=== PATIENT | female | born 1990 | race Caucasian/White ===

== ENCOUNTER 2022-09-07 16:14 | Outpatient (CLI) | payer BC, SELFPAY ==
[2022-09-07 16:55] VITALS: BP 130/68; PULSE 103
--- NOTE | 2022-09-07 17:02 | CRLHL7_ITS ---
For Patients: As a result of the Century Cures Act, medical imaging exams and procedure reports are released immediately into your electronic medical record. You may view this report before your referring provider. If you have questions, please contact your health care provider. INDICATION: Abdominal pain. Established gestational age is 30 weeks 6 days. COMPARISON: None available. TECHNIQUE: Real time cisneros scale imaging of the fetus was performed. FINDINGS: Sonographic imaging demonstrates a single living intrauterine gestation. Fetus demonstrates a regular cardiac rate of 142 beats per minute. Fetus has a vertex orientation. The placenta is anterior. The amniotic fluid volume appears normal. Single deepest vertical pocket measures 5.2 cm.. Biophysical profile: tone- 2/2. The gross body movements- 2/2. breathing activity - 2/2. Amniotic fluid-2/2. Total score- 8/8. IMPRESSION: Normal biophysical profile score of 8 out of 8. Dictated by Angelica Case MD @ 09/07/2022 6:41:50 PM (Electronically Signed)
--- NOTE | 2022-09-07 17:20 | CRLHL7_ITS ---
For Patients: As a result of the Century Cures Act, medical imaging exams and procedure reports are released immediately into your electronic medical record. You may view this report before your referring provider. If you have questions, please contact your health care provider. INDICATION: Right upper quadrant abdomen pain. TECHNIQUE: Ultrasound abdomen limited. Sonographic images of the right upper quadrant were obtained using cisneros-scale and color Doppler images. COMPARISON: None. FINDINGS: Liver: Normal in size and echotexture. No suspicious masses. No intrahepatic biliary dilatation. Gallbladder: No stones or sludge. Normal wall thickness. No pericholecystic fluid. Negative sonographic Orr`s sign. Common bile duct: 3 mm. Pancreas: Unremarkable. Right kidney: Normal in size. Normal echotexture and cortex. No suspicious masses, stones, or hydronephrosis. Vasculature: Proximal abdominal aorta and IVC are unremarkable. IMPRESSION: Unremarkable right upper quadrant ultrasound. Dictated by Gideon Smith MD @ 09/07/2022 6:35:01 PM (Electronically Signed)
--- NOTE | 2022-09-07 17:20 | W.PM.OBO ---
OB Outpatient HPI History of Present Illness Date Seen: 09/07/22 History of Present Illness: 31 year old G5 P 2-0-2-2 woman at 30 weeks, 6 days gestation by LMP consistent with 1st trimester ultrasound, JAUN 11/10/2022, presents with complaint of abdominal pain. She developed sharp, stabbing pain to the right of her umbilicus while driving home to [place] from [place], where she works. Thus far, she has received her care at [facility]. She has noticed some mild discomfort in the right upper quadrant intermittently, and has noticed a similar pain at this currently patient is well, but not as severe. She denies any nausea or vomiting. No vaginal bleeding. No contractions. Good movement. No history of gallbladder disease. This is otherwise complicated by/notable for: 1. Chronic hypertension. She is prescribed labetalol 200 mg b.i.d.. She does not always take it, and tends to reserve it for when her blood pressures are particularly high. Taking it regularly causes her headache. 2. History of 2 previous deliveries. She has a repeat delivery scheduled at 39 weeks. OB History: 2 deliveries at term. Two terminations of PFSH Surgical History (Updated 09/07/22 @ 17:23 by Loreto Bravo MD) History of 2 sections S/P laparoscopy Family History (Updated 09/07/22 @ 17:23 by Loreto Bravo MD) Other High blood pressure Social History (Updated 09/07/22 @ 17:24 by Loreto Bravo MD) Narrative: She lives in [place]. 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 She doesn't drink alcohol or use recreational drugs during . Smoking Status: Former smoker History History 6 Elective abortions Para 2 Spontaneous abortions Hx # Term Pregnancies Ectopic pregnancies Hx # Pregnancies Multiple births Number of Living Children 2 OB - H&P: Exam Physical Exam Vital signs: Pulse BP 103 H 130/68 09/07/22 16:55 09/07/22 16:55 Narrative: Physical exam: General: No acute distress Psych: Alert and oriented x3, full affect HEENT: Normocephalic, atraumatic Heart: Regular rate and rhythm, no murmur rub or gallop Lungs: Clear to auscultation bilaterally Abdomen: Soft, nontender, gravid. No right upper quadrant tenderness to palpation. Lower extremities: No edema or erythema Pelvic exam: Deferred tracing: Baseline 135, accelerations present, no decelerations, moderate variability. Labs Labs HELLP labs are normal/unremarkable Protein to creatinine ratio 0.20 Abdominal ultrasound is normal ultrasound: Sonographic imaging demonstrates a single living intrauterine gestation.? Fetus demonstrates a regular cardiac rate of 142 beats per minute.? Fetus has a vertex orientation. The placenta is anterior. The amniotic fluid volume appears normal. Single deepest vertical pocket measures 5.2 cm.. Biophysical profile: tone- 2/2. The gross body movements- 2/2. breathing activity - 2/2. Amniotic fluid-2/2. Total score- 8/8. IMPRESSION: Normal biophysical profile score of 8 out of 8. Assessment and Plan Assessment and plan (1) Abdominal pain in : Status: Acute Assessment and Plan: Reassuring testing. Normal appearance of right upper quadrant on ultrasound. HELLP labs normal. Ultrasound shows no placental disruption. Uncertain etiology; could include abdominal wall. Plan Discharge to home. 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
[2022-09-07 17:31] LABS: Hematocrit 32.5 % (33.0-51.0); Hemoglobin* 10.9 gm/dL (12.0-16.0); Mean Corpuscular HGB Conc 34 gm/dL (32-36); Mean Corpuscular Hemoglobin 29 pg (26-34); Mean Corpuscular Volume 86 fL (80-100); Platelet Count* 188 K/uL (140-440); Red Blood Count 3.77 m/uL (4.00-5.20); White Blood Count* 14.02 K/uL (4.50-11.00)
[2022-09-07 17:42] LABS: Slide Review Reflex No
[2022-09-07 17:51] LABS: Aspartate Amino Transferase* 23 U/L (12-35); Creatinine* 0.4 mg/dL (0.5-1.5); Estimated Glomerular Filt Rate 136 ml/min
[2022-09-07 17:52] LABS: Alanine Aminotransferase* 27 U/L (4-35); Blood Urea Nitrogen* 6 mg/dL (5-24)
[2022-09-07 17:54] LABS: Total Protein Urine 11 mg/dL
[2022-09-07 17:55] LABS: Creatinine Urine 50.3 mg/dL
[2022-09-07 18:13] VITALS: BP 128/79; PULSE 100
[2022-09-07 18:28] VITALS: BP 117/62; PULSE 90
--- NOTE | 2022-09-07 18:41 | PC.OBNST ---
NST Note NST Note Start: 09/07/22 16:26 Freq: ONCE Status: Active Protocol: Document 09/07/22 16:26 [facility] (Rec: 09/07/22 18:41 [facility] [id number]) NST Note 6 Para (# of births) 2 EDC 11/10/22 Gestational Age In Weeks & Days 30 Weeks & 6 Days High Risk Factors High Blood Pressure - Preexisting Patient Presented with Complaint(s) of Pain If Pain, describe location right quadrant pain Reactive Yes Appropriate for Gestational Age Yes MARK Romero Date 09/07/22 Reactive Yes Appropriate for Gestational Age Yes MARK Jain Date 09/07/22 OB NST charge Yes Complete NST Note via Write Note Yes The provider's electronic signature indicates the NST is reactive/appropriate for gestational age. *Note to provider: If an addendum is required, open the patient's chart and click on the note under the Nurse/Allied Health tab.
== END 2022-09-07 18:46 | disposition home or self-care (01) ==
LOC: OB 16:19 → OB OUT 16:20 → OB 17:53
PROVIDERS: Visit Provider Obstetrics & Gynecology
DX: O26.893 Other specified pregnancy related conditions, third trimester (principal); R10.9 Unspecified abdominal pain; Z3A.30 30 weeks gestation of pregnancy
CPT/HCPCS: 36415; 59025; 76705; 76819; 82565; 82570; 84156; 84450; 84460; 84520; 85027; 99213

== ENCOUNTER 2022-10-25 20:02 | Emergency (ER) | payer BC, SELFPAY ==
[2022-10-25 20:11] VITALS: BP 143/98; PULSE 113; RESP 24; TEMP 36.4; O2SAT 99
--- NOTE | 2022-10-25 20:58 | ED.GENADULT ---
HPI - General Adult General Date Seen: 10/25/22 Chief complaint: Post OB/Post- Complication Stated complaint: pain from c-sec. on wednesday Time Seen by Provider: 10/25/22 20:34 Source: patient Mode of arrival: ambulatory Limitations: no limitations History of Present Illness HPI narrative: Patient is a 32-year-old who had a on Wednesday, presents to the ER on Wednesday saying that she is having ongoing incisional pain and needs additional oxycodone. She says that she was seen in the [place] ER on Wednesday, her Ob actually saw her at that time. She did have preeclampsia, was delivered at 37 weeks as result. She does have hypertension in general, was on losartan prior to her and then switched to labetalol. Is that she was on labetalol post delivery, then switch to Procardia. She felt that her heart was going fast on Procardia and that she had increased swelling in her feet so she switched herself back to labetalol today. On Wednesday, she says she was evaluated and had lab work which was all normal. There is a note in her chart on [facility] from today showing a phone call from the , yesterday that her OB had said he would call a prescription in this morning on the for additional oxycodone. This appears to have been not filled pending insurance review. She comes in tonight, tearful, saying that she is not having good pain control at this time with ibuprofen and Tylenol. She does feel like her swelling is improved off of the Procardia and feels that her heart rate is better on the labetalol as well. She complains of incisional pain, she does not have other abdominal pain. She has not had fevers. She says the incision looks good otherwise. The only reason she is here she says is that she is frustrated that she was not able to get additional oxycodone today as requested and does not feel that there was good communication from her medical administrative. She does not complain of headache, has no other complaints. Related Data Home Medications Medication Instructions Recorded Confirmed albuterol sulfate 90 mcg/actuation 1 inh inhalation Q4-6H PRN 10/25/22 10/25/22 aerosol inhaler (ProAir HFA) bupropion HCl 150 mg 24 hr tablet, mg PO 10/25/22 extended release celecoxib 200 mg capsule mg 10/25/22 cyclobenzaprine 10 mg tablet mg 10/25/22 diazepam 5 mg tablet mg 10/25/22 labetalol 200 mg tablet mg 10/25/22 nifedipine 90 mg tablet,extended mg PO 10/25/22 release 24 hr polyethylene glycol 3350 17 g 10/25/22 gram/dose oral powder Allergies Allergy/AdvReac Type Severity Reaction Status Date / Time azithromycin [From Zithromax] Allergy Mild Rash Verified 10/25/22 20:23 sertraline Allergy Mild gi upset Verified 10/25/22 20:23 buspirone [From BuSpar] Allergy Unknown Verified 10/25/22 20:23 Review of Systems Status of ROS: Reports: 10 or more systems reviewed and unremarkable except as noted in History and below [facility] Medical History Anxiety ASCUS with positive high risk HPV cervical Depression HPV in female Hypertension Surgical History History of 2 sections S/P laparoscopy Family History Other High blood pressure Social History Narrative: She lives in [place]. 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 She doesn't drink alcohol or use recreational drugs during . Smoking Status: Former smoker Exam Narrative: Exam Narrative: Vital signs as noted above. In general, an alert, well-appearing patient. Head: Normocephalic, atraumatic. Eyes: Pupils are equal reactive. Extraocular movements are full. Conjunctivae are normal. ENT: Mucous membranes are moist. Throat is normal. Neck: Supple without lymphadenopathy. Heart: Regular rate and rhythm. No murmur or rub. Lungs: Clear bilaterally. No increased work of breathing, crackles or wheezes. Abdomen: Soft and nontender. Incision healing well. Extremities: Well perfused. She does have some edema in her feet, she feels like her hands are a little swollen as well. Neurologic: Patient is alert and oriented to person and place. Speech is fluent. Face is symmetric. Moves all extremities equally. Affect: Tearful. Skin: Warm and dry. Well perfused. Const: Vital Signs, click to edit/add: Vital Signs - 24 hr 10/25/22 20:11 Temperature 97.5 F L Pulse Rate [Left P ulse Oximeter] 113 H Respiratory Rate 24 Blood Pressure [Ri ght Upper Arm] 143/98 H Pulse Oximetry 99 Oxygen Delivery Me thod Room Air Documenting provider has reviewed patient's vital signs: yes Course Course Hospital Course: I talked with her long-time about things. She lives with her significant other, the father of all 3 of her children. She has a 7-year-old and 11-year-old. She does say she is safe at home and he is reasonably helpful although she does all of the overnight care and is up every 2 hours nursing her infant. She is fairly stressed, she is frustrated that she feels her concerns were blown off as anxiety on Wednesday. She does not feel significantly anxious but acknowledges that she is fairly overwhelmed with everything at home right now. She does feel that she will be able to cope better if she is not having as much incisional pain. I have looked through her records, I think it is reasonable to give her some additional oxycodone but I have reviewed with her that we would certainly want her to be coming off of that here over the next few days. Her her only narcotic prescription is the 1 post a couple of days ago. Her blood pressure is a little bit elevated here as his her pulse, I think this probably is secondary to her being a little bit emotional here. She says her blood pressure is a little bit high at home but not as high as this. The fact that she had a workup on Wednesday that was normal is reassuring. I have asked her to follow up least by phone with her clinic tomorrow, let them know that she switched her blood pressure medicine back, and certainly if she is having any progressive symptoms or develops new symptoms I would want her to be seen again more urgently. She is keeping track of her blood pressures at home and if there her she should reviewed that with her medical administrative right away. Vital Signs Vital signs: Initial Vital Signs Temperature 97.5 F L 10/25/22 20:11 Temperature Source Temporal Artery Scan 10/25/22 20:11 Pulse Rate 113 H 10/25/22 20:11 Pulse Rhythm 10/25/22 20:11 Respiratory Rate 24 10/25/22 20:11 Blood Pressure 143/98 H 10/25/22 20:11 Blood Pressure Mean 113 10/25/22 20:11 Blood Pressure Position Sitting 10/25/22 20:11 Pulse Oximetry 99 10/25/22 20:11 Oxygen Delivery Method 10/25/22 20:11 Vital Signs Temperature 97.5 F L 10/25/22 20:11 Pulse Rate 113 H 10/25/22 20:11 Respiratory Rate 24 10/25/22 20:11 Blood Pressure 143/98 H 10/25/22 20:11 Pulse Oximetry 99 10/25/22 20:11 Oxygen Delivery Method 10/25/22 20:11 Temperature 97.5 F L 10/25/22 20:11 Pulse Rate 113 H 10/25/22 20:11 Respiratory Rate 24 10/25/22 20:11 Blood Pressure 143/98 H 10/25/22 20:11 Pulse Oximetry 99 10/25/22 20:11 Oxygen Delivery Method 10/25/22 20:11 Discharge Plan Discharge Clinical Impression: Post-op pain Patient Disposition: Home, Self-Care Condition: Stable Instructions: Opioid Safety (ED), Pain Management After Surgery (DC) Additional Instructions: Medication as prescribed. Call your clinic tomorrow to let them know about your medication changes and blood pressure. If you have worsening symptoms new symptoms such as fever, vomiting, severe pain, return or follow-up with your OB doctor. Prescriptions: No Action celecoxib 200 mg capsule Label Comments: TAKE 1 CAPSULE (200 MG) BY MOUTH TWO TIMES DAILY WITH MEALS. cyclobenzaprine 10 mg tablet Label Comments: TAKE 1 TABLET (10 MG TOTAL) BY MOUTH 3 (THREE) TIMES A DAY NEEDED FOR MUSCLE SPASMS. labetalol 200 mg tablet Label Comments: TAKE 1 TABLET (200 MG TOTAL) BY MOUTH EVERY 12 (TWELVE) HOURS. nifedipine 90 mg tablet extended release 24hr PO Label Comments: TAKE 1 TABLET (90 MG) BY MOUTH ONCE DAILY BEFORE A MEAL. diazepam 5 mg tablet bupropion HCl 150 mg tablet extended release 24 hr PO Label Comments: TAKE 1 TABLET (150 MG TOTAL) BY MOUTH DAILY. polyethylene glycol 3350 17 gram/dose powder Label Comments: MIX 17 G IN LIQUID THEN TAKE BY MOUTH ONCE DAILY. albuterol sulfate [ProAir HFA] 90 mcg/actuation HFA aerosol inhaler 1 inh inhalation Q4-6H PRN Follow Up/Referrals: Provider,Not a Local [Primary Care Provider] - Stand Alone Forms: [employer] Info Instructions
== END 2022-10-25 21:21 | disposition home or self-care (01) ==
LOC: ED 21:06
PROVIDERS: Emergency Provider Emergency Medicine
DX: G89.18 Other acute postprocedural pain (principal)
CPT/HCPCS: 99282; 99283

== ENCOUNTER 2024-02-20 00:19 | Emergency (ER) | payer MEDICAID, SELFPAY ==
[2024-02-20 00:33] VITALS: BP 165/118; PULSE 103; RESP 20; TEMP 36.6; O2SAT 100; BMI 28.3
[2024-02-20 00:38] LABS: Appearance Urine Clear (Clear); Bilirubin Urine Negative (Negative); Blood Urine Trace-lysed (Negative); Color Urine Yellow (Yellow); Glucose Urine Negative (Negative); Ketones Urine Negative (Negative); Leukocyte Esterase Urine 1+ (Negative); Nitrite Urine Negative (Negative); Protein Urine Negative (Negative); Specific Gravity Urine <= 1.005 (1.000-1.030); Urobilinogen Urine 0.2 (0.2-1.0)
[2024-02-20 00:48] LABS: Bacteria Urine Few; RBC Urine 0-2 (0-2); Squamous Epithelial Cell Urine Moderate (None-Few)
--- NOTE | 2024-02-20 00:53 | ED_ITS ---
HPI - General Adult General Chief complaint: Urogenital Problems, Female Stated complaint: Kidney Stone or Bladder infection. Time Seen by Provider: 02/20/24 00:44 History of Present Illness HPI narrative: i feel like I have a UTI or kidney stone or something. It feels like I'm peeing glass, it hurts. been happening off and on for a month, seen in a month ago for the same issue. Given, Keflex, but did not complete as she was called and told there was no infection. Denies change of symptoms, just intermittent. states of low back pain. states of history of kidney stones and UTIs when younger. 33-year-old woman presenting to the emergency department with concern of painful urination. She says it feels like she is urinating glass. This has been going on intermittently for a month or so. Had received Keflex when seen early in course. Apparently had been called following results of urine culture which did not grow convincing evidence of infection. Therefore discontinued Keflex. She has not been having any fever. Apparently remote nephrolithiasis and urinary tract infections. Has had intermittent low back discomfort. No hematuria. She is not having significant abdominal pain. No concern of STI. Related Data Home Medications ?Medication ?Instructions ?Recorded ?Confirmed albuterol sulfate 90 mcg/actuation 1 inh inhalation Q4-6H PRN 10/25/22 10/25/22 aerosol inhaler (ProAir HFA) bupropion HCl 150 mg 24 hr tablet, mg PO 10/25/22 extended release celecoxib 200 mg capsule mg 10/25/22 cyclobenzaprine 10 mg tablet mg 10/25/22 diazepam 5 mg tablet mg 10/25/22 labetalol 200 mg tablet mg 10/25/22 nifedipine 90 mg tablet,extended mg PO 10/25/22 release 24 hr polyethylene glycol 3350 17 g 10/25/22 gram/dose oral powder Previous Rx's ?Medication ?Instructions ?Recorded tamsulosin 0.4 mg capsule (Flomax) 0.4 mg PO DAILY PRN spasm #15 caps 02/20/24 Allergies Allergy/AdvReac Type Severity Reaction Status Date / Time azithromycin [From Zithromax] Allergy Mild Rash Verified 10/25/22 20:23 sertraline Allergy Mild gi upset Verified 10/25/22 20:23 buspirone [From BuSpar] Allergy Unknown Verified 10/25/22 20:23 Review of Systems Status of ROS: Reports: 6 or more systems reviewed and unremarkable except as noted in History and below PFSH [facility] Medical History Hypertension ?I10 - Essential (primary) hypertension (ICD-10) 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 - Papillomavirus as the cause of diseases classified elsewhere (ICD- 10) Depression ?F32.A - Depression, unspecified (ICD-10) ASCUS with positive high risk HPV cervical ?R87.610 - Atypical squamous cells of undetermined significance on cytologic smear of cervix (ASC-US) (ICD-10) ?R87.810 - Cervical high risk human papillomavirus (HPV) DNA test positive (ICD-10) Anxiety ?F41.9 - Anxiety disorder, unspecified (ICD-10) Surgical History S/P laparoscopy ?Z98.890 - Other specified postprocedural states (ICD-10) History of 2 sections ?Z98.891 - History of uterine scar from previous surgery (ICD-10) Family History Other High blood pressure Social History Narrative: She lives in [place]. 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 She doesn't drink alcohol or use recreational drugs during . Smoking Status: Former smoker Do you use any of these nicotine containing products: None Second hand tobacco smoke exposure: No How often do you have a drink containing alcohol: never How often do you have six or more drinks on one occasion: Never AUDIT-C Alcohol total score: 0 Non-prescribed substance use: denies use service: No Exam Narrative: Exam Narrative: Pleasant. NAD. Breathing easily. Skin is warm and dry. Well-perfused. Blood pressure noted to be little bit elevated on arrival. Abdomen is soft. May be mildly uncomfortable suprapubic. No significant flank pain. Const: Vital Signs, click to edit/add: Vital Signs - 24 hr 02/20/24 00:33 Temperature 97.9 F Pulse Rate [Left P ulse Oximeter] 103 H Respiratory Rate 20 Blood Pressure [Ri ght Upper Arm] 165/118 H Pulse Oximetry 100 Oxygen Delivery Me thod Room Air Documenting provider has reviewed patient's vital signs: yes Course Vital Signs Vital signs: Initial Vital Signs Temperature 97.9 F 02/20/24 00:33 Temperature Source Temporal Artery Scan 02/20/24 00:33 Pulse Rate 103 H 02/20/24 00:33 Pulse Rhythm Regular 02/20/24 00:33 Respiratory Rate 20 02/20/24 00:33 Blood Pressure 165/118 H 02/20/24 00:33 Blood Pressure Mean 133 H 02/20/24 00:33 Blood Pressure Position Sitting 02/20/24 00:33 Pulse Oximetry 100 02/20/24 00:33 Oxygen Delivery Method Room Air 02/20/24 00:33 Vital Signs Temperature 97.9 F 02/20/24 00:33 Pulse Rate 103 H 02/20/24 00:33 Respiratory Rate 20 02/20/24 00:33 Blood Pressure 165/118 H 02/20/24 00:33 Pulse Oximetry 100 02/20/24 00:33 Oxygen Delivery Method Room Air 02/20/24 00:33 Temperature 97.9 F 02/20/24 00:33 Pulse Rate 103 H 02/20/24 00:33 Respiratory Rate 20 02/20/24 00:33 Blood Pressure 165/118 H 02/20/24 00:33 Pulse Oximetry 100 02/20/24 00:33 Oxygen Delivery Method Room Air 02/20/24 00:33 Medications Administered Medications: Discontinued Medications Generic Name Dose Route Start Last Admin Trade Name Freq PRN Reason Stop Dose Admin Tamsulosin HCl 0.4 mg 02/20/24 01:06 02/20/24 01:13 Tamsulosin Hcl 0.4 Mg Capsule PO 02/20/24 01:07 0.4 mg ONCE ONE Administration Medical Decision Making MDM Narrative Medical decision making narrative: Check again urinalysis. Does not seem to have other or secondary signs of more concerning infection. Symptoms not inconsistent with cystitis/urethritis. Will give dose of phenazopyridine here in the emergency department. Urinalysis obtained is with findings of infection though mild. Without further symptoms I think can defer for further evaluation here and treat for what appears to be cystitis. Urine culture can guide further decision making See patient discharge plan for further discussion Medical Records Medical records reviewed: Yes I reviewed the patient's medical records Lab Data Lab results reviewed: Yes I reviewed the patient's lab results Labs: Lab Results 02/20/24 Range/Units 00:25 Urine Color Yellow (Yellow) Urine Appearance Clear (Clear) Urine pH 6.0 (5.0-8.5) Ur Specific [place] <= 1.005 (1.000-1.030) Urine Protein Negative (Negative) Urine Glucose (UA) Negative (Negative) Urine Ketones Negative (Negative) Urine Blood Trace-lysed A (Negative) Urine Nitrite Negative (Negative) Urine Bilirubin Negative (Negative) Urine Urobilinogen 0.2 (0.2-1.0) Ur Leukocyte Esterase 1+ A (Negative) Urine RBC 0-2 (0-2) Urine WBC 5-10 A (0-5) Ur Squamous Epith Cells Moderate A (None-Few) Urine Bacteria Few A (None) Discharge Plan Discharge Clinical Impression: Cystitis Patient Disposition: Home, Self-Care Condition: Stable Additional Instructions: A urine culture will be pending here. We will call if need to change antibiotics. Please recheck your blood pressure a couple of times over this next week after period of rest. Phenazopyridine and cephalexin from [facility]. Sending in a prescription of Flomax also as discussed. Prescriptions: New tamsulosin [Flomax] 0.4 mg capsule 0.4 mg PO DAILY PRN (Reason: spasm) Qty: 15 0RF No Action celecoxib 200 mg capsule Patient Comments: TAKE 1 CAPSULE (200 MG) BY MOUTH TWO TIMES DAILY WITH MEALS. cyclobenzaprine 10 mg tablet Patient Comments: TAKE 1 TABLET (10 MG TOTAL) BY MOUTH 3 (THREE) TIMES A DAY NEEDED FOR MUSCLE SPASMS. labetalol 200 mg tablet Patient Comments: TAKE 1 TABLET (200 MG TOTAL) BY MOUTH EVERY 12 (TWELVE) HOURS. nifedipine 90 mg tablet extended release 24hr PO Patient Comments: TAKE 1 TABLET (90 MG) BY MOUTH ONCE DAILY BEFORE A MEAL. diazepam 5 mg tablet bupropion HCl 150 mg tablet extended release 24 hr PO Patient Comments: TAKE 1 TABLET (150 MG TOTAL) BY MOUTH DAILY. polyethylene glycol 3350 17 gram/dose powder Patient Comments: MIX 17 G IN LIQUID THEN TAKE BY MOUTH ONCE DAILY. albuterol sulfate [ProAir HFA] 90 mcg/actuation HFA aerosol inhaler 1 inh inhalation Q4-6H PRN Follow Up/Referrals: Provider,Not a Local [Primary Care Provider] - Stand Alone Forms: [employer] Info Instructions
[2024-02-20] MEDS: TAMSULOSIN HCL 0.4 MG CAPSULE PO (01:13)
== END 2024-02-20 01:30 | disposition home or self-care (01) ==
LOC: ED 01:13
PROVIDERS: Emergency Provider Family Medicine
DX: N30.90 Cystitis, unspecified without hematuria (principal)
CPT/HCPCS: 81001; 87086; 87186; 99283; 99284; A9270

== ENCOUNTER 2024-03-24 09:24 | Emergency (ER) | payer OTHER, SELFPAY ==
[2024-03-24 09:27] VITALS: BP 149/95; PULSE 115; RESP 18; TEMP 36.1; O2SAT 100; BMI 29.2
--- NOTE | 2024-03-24 09:37 | ED_ITS ---
HPI - General Adult General Chief complaint: Extremity Pain/Injury, Lower Stated complaint: Twisted right knee Time Seen by Provider: 03/24/24 09:37 History of Present Illness HPI narrative: Patient presents to the emergency department complaining of right knee pain . Patient states she fell down some stairs and she felt her knee twist and heard a pop. Patient is able to walk on the affected leg however states it is painful. Patient claims no other injuries at this time. 33-year-old woman presenting to the emergency department with complaint of any pain. He was carrying laundry added a basement in this last 2 steps landing on her right knee last night. She has iced in taken ibuprofen and acetaminophen bring it to a tolerable level. Hurts in particular to bend or bear weight but is able to walk. Does not describe prior significant injuries. Did not hit her head. No neck or back pain. Related Data Home Medications ?Medication ?Instructions ?Recorded ?Confirmed albuterol sulfate 90 mcg/actuation 1 inh inhalation Q4-6H PRN 10/25/22 10/25/22 aerosol inhaler (ProAir HFA) bupropion HCl 150 mg 24 hr tablet, mg PO 10/25/22 extended release celecoxib 200 mg capsule mg 10/25/22 cyclobenzaprine 10 mg tablet mg 10/25/22 diazepam 5 mg tablet mg 10/25/22 labetalol 200 mg tablet mg 10/25/22 nifedipine 90 mg tablet,extended mg PO 10/25/22 release 24 hr polyethylene glycol 3350 17 g 10/25/22 gram/dose oral powder Previous Rx's ?Medication ?Instructions ?Recorded tamsulosin 0.4 mg capsule (Flomax) 0.4 mg PO DAILY PRN spasm #15 caps 02/20/24 Allergies Allergy/AdvReac Type Severity Reaction Status Date / Time azithromycin [From Zithromax] Allergy Mild Rash Verified 10/25/22 20:23 sertraline Allergy Mild gi upset Verified 10/25/22 20:23 buspirone [From BuSpar] Allergy Unknown Verified 10/25/22 20:23 Review of Systems Status of ROS: Reports: 6 or more systems reviewed and unremarkable except as noted in History and below [facility] Medical History Hypertension ?I10 - Essential (primary) hypertension (ICD-10) 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 - Papillomavirus as the cause of diseases classified elsewhere (ICD- 10) Depression ?F32.A - Depression, unspecified (ICD-10) ASCUS with positive high risk HPV cervical ?R87.610 - Atypical squamous cells of undetermined significance on cytologic smear of cervix (ASC-US) (ICD-10) ?R87.810 - Cervical high risk human papillomavirus (HPV) DNA test positive (ICD-10) Anxiety ?F41.9 - Anxiety disorder, unspecified (ICD-10) Surgical History S/P laparoscopy ?Z98.890 - Other specified postprocedural states (ICD-10) History of 2 sections ?Z98.891 - History of uterine scar from previous surgery (ICD-10) Family History Other High blood pressure Social History Narrative: She lives in [place]. She works at a [employer] center in [place]. 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 She doesn't drink alcohol or use recreational drugs during . Smoking Status: Former smoker Do you use any of these nicotine containing products: None Second hand tobacco smoke exposure: No How often do you have a drink containing alcohol: never How often do you have six or more drinks on one occasion: Never AUDIT-C Alcohol total score: 0 Non-prescribed substance use: denies use service: No Exam Narrative: Exam Narrative: Pleasant. NAD. Seated with legs up in exam chair. Breathing easily. Head looks to be atraumatic. Initially thought maybe there is some bruising on the bridge of her nose but I think this just normal subcu vasculature. Moving all extremities without difficulty other than the right leg. Area of injury does appear to be the right knee. There is a small subcentimeter abrasion on the medial lateral patella. I think there is a small effusion. The patella does not otherwise appear to be injured. No laxity to varus or valgus stressors though pain is elicited on the inferior medial aspect of the anterior knee with valgus stress. Harshad's without laxity. Cara's with external rotation causes more discomfort as well. Not positive otherwise. Const: Vital Signs, click to edit/add: Vital Signs - 24 hr 03/24/24 09:27 Temperature 97.0 F L Pulse Rate [Right Pulse Oximeter] 115 H Respiratory Rate 18 Blood Pressure [Ri ght Upper Arm] 149/95 H Pulse Oximetry 100 Oxygen Delivery Me thod Room Air Documenting provider has reviewed patient's vital signs: yes Course Vital Signs Vital signs: Initial Vital Signs Temperature 97.0 F L 03/24/24 09:27 Temperature Source Temporal Artery Scan 03/24/24 09:27 Pulse Rate 115 H 03/24/24 09:27 Pulse Rhythm Regular 03/24/24 09:27 Pulse Strength 3+ Normal 03/24/24 09:27 Respiratory Rate 18 03/24/24 09:27 Blood Pressure 149/95 H 03/24/24 09:27 Blood Pressure Mean 113 H 03/24/24 09:27 Blood Pressure Position Sitting 03/24/24 09:27 Pulse Oximetry 100 03/24/24 09:27 Oxygen Delivery Method Room Air 03/24/24 09:27 Vital Signs Temperature 97.0 F L 03/24/24 09:27 Pulse Rate 115 H 03/24/24 09:27 Respiratory Rate 18 03/24/24 09:27 Blood Pressure 149/95 H 03/24/24 09:27 Pulse Oximetry 100 03/24/24 09:27 Oxygen Delivery Method Room Air 03/24/24 09:27 Temperature 97.0 F L 03/24/24 09:27 Pulse Rate 115 H 03/24/24 09:27 Respiratory Rate 18 03/24/24 09:27 Blood Pressure 149/95 H 03/24/24 09:27 Pulse Oximetry 100 03/24/24 09:27 Oxygen Delivery Method Room Air 03/24/24 09:27 Medical Decision Making MDM Narrative Medical decision making narrative: Location of pain in the knee would suggest meniscal tear or maybe MCL sprain or not visualized tibial plateau fracture. I suppose this could be a contusion from the impact on the patella. Initial imaging with three-view x-ray of the knee. Reviewed by me looks to be without bony abnormality. Patella in good alignment. No clear effusion. Placed in knee immobilizer. This does help. Close follow-up. See patient discharge plan for further discussion. Medical Records Medical records reviewed: Yes I reviewed the patient's medical records Discharge Plan Discharge Clinical Impression: Left knee sprain, Knee pain, Contusion Patient Disposition: Home, Self-Care Condition: Stable Additional Instructions: I would ice your knee 2-3 times daily over the next few days. I like those screw top ice bags. Can get at [facility] at least. Fill with ice and water. Wear the knee immobilizer for comfort over the next week. See handout on knee sprain. I am not absolutely certain what your injury is. I think knee sprain, as you said, is likely and probably the medial collateral ligament. You might have a meniscal injury. And I think given evidence of impact on the patella, probably some bruising as well. Consider follow-up if you are not clearly improved in 2 weeks. Prescriptions: No Action celecoxib 200 mg capsule Patient Comments: TAKE 1 CAPSULE (200 MG) BY MOUTH TWO TIMES DAILY WITH MEALS. cyclobenzaprine 10 mg tablet Patient Comments: TAKE 1 TABLET (10 MG TOTAL) BY MOUTH 3 (THREE) TIMES A DAY NEEDED FOR M USCLE SPASMS. labetalol 200 mg tablet Patient Comments: TAKE 1 TABLET (200 MG TOTAL) BY MOUTH EVERY 12 (TWELVE) HOURS. nifedipine 90 mg tablet extended release 24hr PO Patient Comments: TAKE 1 TABLET (90 MG) BY MOUTH ONCE DAILY BEFORE A MEAL. diazepam 5 mg tablet bupropion HCl 150 mg tablet extended release 24 hr PO Patient Comments: TAKE 1 TABLET (150 MG TOTAL) BY MOUTH DAILY. polyethylene glycol 3350 17 gram/dose powder Patient Comments: MIX 17 G IN LIQUID THEN TAKE BY MOUTH ONCE DAILY. albuterol sulfate [ProAir HFA] 90 mcg/actuation HFA aerosol inhaler 1 inh inhalation Q4-6H PRN tamsulosin [Flomax] 0.4 mg capsule 0.4 mg PO DAILY PRN (Reason: spasm) Qty: 15 0RF Follow Up/Referrals: Provider,Not a Local [Primary Care Provider] - Stand Alone Forms: [employer] Info Instructions
--- NOTE | 2024-03-24 09:45 | CRLHL7_ITS ---
For Patients: As a result of the Century Cures Act, medical imaging exams and procedure reports are released immediately into your electronic medical record. You may view this report before your referring provider. If you have questions, please contact your health care provider. Indication: Anterior pain post fall impact Comparison: None available. Technique: Standing AP, lateral, and sunrise views of the right knee were obtained Findings: There is no displaced fracture or dislocation. The joint spaces are grossly preserved. The soft tissues are unremarkable. Impression: No acute osseus abnormality. Dictated by Ashok Feliz MD @ 03/24/2024 10:07:40 AM (Electronically Signed)
== END 2024-03-24 11:01 | disposition home or self-care (01) ==
PROVIDERS: Emergency Provider Family Medicine
DX: S80.01XA Contusion of right knee, initial encounter (principal); W10.9XXA Fall (on) (from) unspecified stairs and steps, initial encounter
CPT/HCPCS: 73562; 99283; 99284

== ENCOUNTER 2025-02-04 15:16 | Emergency (ER) | payer BC, SELFPAY ==
--- NOTE | 2025-02-04 15:17 | ED.GENADULT ---
HPI - General Adult General Date Seen: 02/04/25 Chief complaint: Fever Stated complaint: Fever for past 5 days Time Seen by Provider: 02/04/25 15:17 History of Present Illness HPI narrative: 34 yo F with a past medical history of hypertension, previous , history of cystitis diagnosed in ER in Apr 2024 (UA showed 5-10 WBC/HPF. Urine culture grew E coli resistant to Bactrim and gentamicin and ampicillin). Patient 1st noted symptoms about 10 days or so ago when she had some urgency, dysuria, and urinary frequency. She thought she might be having another UTI. She took a couple of days of azo which helped the symptoms and since then the urinary tract infection symptoms have largely subsided. She also started having her menstrual cycle up about 10-14 days ago. Her period ended about 4-5 days ago. Her period was on time and not heavier or worse than normal. She is sexually active. When she was discussing her symptoms with the triage nurse she did question whether not she might have an STI. She has no specific concern for exposure to STI and has no symptoms of vaginal discharge or dyspareunia. She just wonders. In addition to those symptoms she has also developed some right flank pain for the past few days. She also notes that it has been several days since she has been able to pass any bowel movement. She has been trying to treat herself with MiraLax but she just can not poop. She feels as though her whole abdomen feels bloated. She is not really having any anterior abdominal pain. She is nauseous but not vomiting. For the past 5 days or so she has been running a fever. She has been self medicating with alternating doses of Tylenol and ibuprofen which temporarily bring her fever down. Along with a fever she has had a generalized headache. She has not really had any cough. She did do a home COVID swab and it was negative. Mild stuffy nose. No earache. No sore throat. No trouble breathing. No chest pain. No rash. Related Data Home Medications ?Medication ?Instructions ?Recorded ?Confirmed albuterol sulfate 90 mcg/actuation 1 inh inhalation Q4-6H PRN 10/25/22 02/04/25 aerosol inhaler (ProAir HFA) clonazepam 0.5 mg tablet 0.25 - 0.5 mg PO QPM 02/04/25 02/04/25 clonidine HCl 0.2 mg tablet 0.2 mg PO QPM 02/04/25 02/04/25 dextroamphetamine-amphetamine 5 mg 1 tab PO DAILY 02/04/25 02/04/25 tablet dextroamphetamine-amphetamine ER 1 cap PO QAM 02/04/25 02/04/25 10 mg 24hr capsule,extend release escitalopram oxalate 10 mg tablet 10 mg PO DAILY 02/04/25 02/04/25 losartan 25 mg tablet 25 mg PO DAILY 02/04/25 02/04/25 propranolol 20 mg tablet 20 mg PO BID PRN 02/04/25 02/04/25 sertraline 25 mg tablet 25 mg PO QAM 02/04/25 02/04/25 Previous Rx's ?Medication ?Instructions ?Recorded cefpodoxime 200 mg tablet 200 mg PO BID #20 tabs 02/04/25 fluconazole 150 mg tablet 150 mg PO DAILY #1 tab 02/04/25 hydrocodone 5 mg-acetaminophen 325 1 tab PO Q6H PRN pain #7 tabs 02/04/25 mg tablet ondansetron 4 mg disintegrating 4 mg PO Q8H PRN nausea and 02/04/25 tablet vomiting #7 tabs Allergies Allergy/AdvReac Type Severity Reaction Status Date / Time azithromycin (From Zithromax) Allergy Mild Rash Verified 02/04/25 15:23 sertraline Allergy Mild gi upset Verified 10/25/22 20:23 buspirone (From BuSpar) Allergy Unknown Verified 10/25/22 20:23 [facility] Medical History Hypertension ?I10 - Essential (primary) hypertension (ICD-10) 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 - Papillomavirus as the cause of diseases classified elsewhere (ICD-10) Depression ?F32.A - Depression, unspecified (ICD-10) ASCUS with positive high risk HPV cervical ?R87.610 - Atypical squamous cells of undetermined significance on cytologic smear of cervix (ASC-US) (ICD-10) ?R87.810 - Cervical high risk human papillomavirus (HPV) DNA test positive (ICD-10) Anxiety ?F41.9 - Anxiety disorder, unspecified (ICD-10) Surgical History S/P laparoscopy ?Z98.890 - Other specified postprocedural states (ICD-10) History of 2 sections ?Z98.891 - History of uterine scar from previous surgery (ICD-10) Family History Other High blood pressure Social History Narrative: She lives in [place]. She works at a [employer] in [place]. 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 She doesn't drink alcohol or use recreational drugs during . Smoking Status: Former smoker Do you use any of these nicotine containing products: None Second hand tobacco smoke exposure: No How often do you have a drink containing alcohol: never How often do you have six or more drinks on one occasion: Never AUDIT-C Alcohol total score: 0 Non-prescribed substance use: denies use service: No Exam Narrative: Exam Narrative: Constitutional: Appears well-developed and well-nourished. Alert. Uncomfortable and the bright lights hurt her eyes. She feels better when I turn the lights off. Conversant. She looks like she does not feel good but she is overall not toxic appearing. HENT: Head: Atraumatic. Nose: Nose normal. Mouth/Throat: Oral mucosa is clear and moist. no trismus. Pharynx erythematous and perhaps a little bit of exudate on her uvula. Tonsils are at them does but no exudates.. Tonsils symmetric. Airway patent. No trismus. No stridor. Eyes: Conjunctivae normal. EOM normal. Pupils equal, round, and reactive to light. No scleral icterus. Neck: Normal range of motion. Neck supple. No tracheal deviation present. No adenopathy. Cardiovascular: Tachycardic. regular rhythm. No gallop. No friction rub. No murmur heard. Symmetric radial artery pulses Pulmonary/Chest: Effort normal. No stridor. No respiratory distress. No wheezes. No rales. No rhonchi . No tenderness. Abdominal: Soft. Bowel sounds normal. No distension. No mass. Suprapubic tenderness. No rebound. No guarding. Musculoskeletal: RUE: Normal range of motion. No tenderness. No deformity LUE: Normal range of motion. No tenderness. No deformity RLE: Normal range of motion. No edema. No tenderness. No deformity LLE: Normal range of motion. No edema. No tenderness. No deformity Lymph: No cervical adenopathy. Neurological: Alert and oriented to person, place, and time. Normal strength. CN II-VII intact. No sensory deficit. GCS eye subscore is 4. GCS verbal subscore is 5. GCS motor subscore is 6. Normal coordination Skin: Skin is warm and dry. No rash noted. No pallor. Normal capillary refill. Psychiatric: Normal mood. Normal affect. Polite. Const: Vital Signs, click to edit/add: Vital Signs - 24 hr 02/04/25 15:25 02/04/25 18:00 02/04/25 19:00 Temperature 101.8 F H 99.7 F H Pulse Rate 74 Pulse Rate [Pulse Oximeter] 122 H Respiratory Rate 20 16 Blood Pressure 134/74 Blood Pressure [Ri ght Upper Arm] 134/76 Pulse Oximetry 99 99 Oxygen Delivery Me thod Room Air Course Vital Signs Vital signs: Initial Vital Signs Temperature 101.8 F H 02/04/25 15:25 Temperature Source Oral 02/04/25 15:25 Pulse Rate 122 H 02/04/25 15:25 Respiratory Rate 20 02/04/25 15:25 Blood Pressure 134/76 02/04/25 15:25 Blood Pressure Mean 95 02/04/25 15:25 Pulse Oximetry 99 02/04/25 15:25 Oxygen Delivery Method Room Air 02/04/25 15:25 Vital Signs Temperature 101.8 F H 02/04/25 15:25 Pulse Rate 122 H 02/04/25 15:25 Respiratory Rate 20 02/04/25 15:25 Blood Pressure 134/76 02/04/25 15:25 Pulse Oximetry 99 02/04/25 15:25 Oxygen Delivery Method Room Air 02/04/25 15:25 Temperature 99.7 F H 02/04/25 19:00 Pulse Rate 74 02/04/25 18:00 Respiratory Rate 16 02/04/25 18:00 Blood Pressure 134/74 02/04/25 18:00 Pulse Oximetry 99 02/04/25 18:00 Oxygen Delivery Method Room Air 02/04/25 15:25 Medications Administered Medications: Discontinued Medications Generic Name Dose Route Start Last Admin Trade Name Freq PRN Reason Stop Dose Admin Acetaminophen 1,000 mg 02/04/25 18:01 02/04/25 18:10 Acetaminophen 500 Mg Tablet PO 02/04/25 18:02 1,000 mg ONCE ONE Administration Hydromorphone HCl 0.5 mg 02/04/25 18:01 02/04/25 18:11 Hydromorphone 0.5 Mg/0.5 Ml Inj IVP 0.5 mg Q1H PRN Administration Pain Sodium Chloride 1,000 mls @ 1,000 mls/hr 02/04/25 16:00 02/04/25 17:09 0.9 % Sodium Chloride 1000 Ml IV 02/04/25 16:59 Infused .Q1H MILE Infusion Ceftriaxone Sodium 1 gm/ 100 mls @ 200 mls/hr 02/04/25 17:49 02/04/25 18:25 Sodium Chloride IVPB 02/04/25 17:50 Infused ONCE ONE Infusion Sodium Chloride 1,000 mls @ 1,000 mls/hr 02/04/25 18:15 02/04/25 19:11 0.9 % Sodium Chloride 1000 Ml IV 02/04/25 19:14 Infused .Q1H MILE Infusion Ketorolac Tromethamine 15 mg 02/04/25 15:49 02/04/25 16:14 Ketorolac 15 Mg/Ml Inj IVP 02/04/25 15:50 15 mg ONCE ONE Administration Ondansetron HCl 4 mg 02/04/25 15:49 02/04/25 16:14 Ondansetron 2 Mg/Ml Inj IVP 02/04/25 15:50 4 mg ONCE ONE Administration Medical Decision Making [facility] Narrative Medical decision making narrative: Pleasant 34-year-old female presenting to the ER today with concern for fever, urinary symptoms, headache. On exam she also has evidence for pharyngitis. Differential is broad. Recent UTI symptoms and flank pain at raise concern for possible pyelonephritis. Urinalysis with micro shows weak evidence for infection with positive blood, weakly positive leukocyte esterase.. Stone protocol CT shows no evidence for obstructing stone but a little bit of perinephric stranding around the right kidney and mild dilatation of the right ureter without any obstructing stone there. Imaging findings could be related to possible pyelonephritis. Based on the patient's clinical presentation I do think she has pyelo some surprise that her urinalysis is so weakly abnormal. His based on high clinical suspicion and imaging findings will start on Rocephin 1 g IV here in the ER for possible pyelo. She presented with fever, tachycardia but normal blood pressure. White count is normal. Heart rate improved with 2 L IV fluid and antipyretics this and pain control. Patient feeling much better after meds. She is sitting up. At the time I came back to do her 3rd recheck she was actually already dressed and eager to be discharged because she was feeling so much better. LFTs are mildly abnormal with an AST of 101, ALT of 128. Alk-phos is 150 which is upper limit of normal. Total Bilirubin is 0.9. She is not having any anterior right upper quadrant tenderness on serial exams. No evidence for radiopaque gallstones on her stone protocol CT scan. In the absence of any right upper quadrant tenderness at this point I think it is reasonable to hold off on gallbladder ultrasound. With her abdominal bloating, suprapubic tenderness, absence of BM for several days this raises concern for possible obstruction or intra-abdominal infection. Stone protocol CT scan shows no evidence for appendicitis, colitis, obstruction, or other surgical cause. On exam she does have evidence for pharyngitis and uvulitis. At [facility] COVID test was negative. PCR based COVID/influenza test today is negative. Strep test is negative . 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 No evidence for any impending airway obstruction. She is not . She also raises concern for possible STI. She has no specific symptoms or definite concern and no vaginal discharge. She was not able to provide a 1st catch urine sample because she had already provided a clean-catch at triage. We discussed options for workup including pelvic exam with cervical swab. She would prefer to do vaginal self swab but I think is reasonable. She does have mild suprapubic tenderness but no significant guarding. At this point I have low suspicion for PID. At this point results of the patient's vaginal swabs are not back yet. If she is abnormal she will require outpatient treatment with appropriate antibiotics. With her headache consider possible EXTRACTIVE METALLURGIST infection/meningitis. However she has no associated altered mental status, neck stiffness, meningismus. Discussed possible meningitis with the patient but using shared decision-making, we decided not to go ahead with LP. She really does not want to go through that test. Lab Data Labs: Lab Results 02/04/25 02/04/25 02/04/25 Range/Units 15:26 16:09 16:15 WBC 10.96 (4.50-11.00) K/uL RBC 3.94 L (4.00-5.20) m/uL Hgb 12.1 (12.0-16.0) gm/dL Hct 36.0 (33.0-51.0) % MCV 91 (80-100) fL MCH 31 (26-34) pg MCHC 34 (32-36) gm/dL RDW Coeff of Vern 12.8 (11.5-15.5) % Plt Count 176 (140-440) K/uL Neut % (Auto) 82.3 H (42.0-72.0) % Lymph % (Auto) 7.1 L (20-44) % [place] % (Auto) 9.9 (0.0-11.0) % Eos % (Auto) 0.1 (0.0-7.0) % Baso % (Auto) 0.1 (0.0-3.0) % Neut # (Auto) 9.00 H (1.7-7.0) K/uL Lymph # (Auto) 0.80 L (0.90-2.90) K/uL [place] # (Auto) 1.10 H (0.00-0.90) K/UL Eos # (Auto) 0.01 (0.00-0.50) K/uL Baso # (Auto) 0.01 (0.00-0.30) K/uL Abs Immat Gran (auto) 0.05 (0.00-0.30) K/uL Imm/Tot Granulo (auto) 0.5 % Sodium 134 L (135-149) mmol/L Potassium 3.8 (3.6-5.1) mmol/L Chloride 99 (96-114) mmol/L Carbon Dioxide 27 (20-32) mmol/L Anion Gap 8 (7-15) mEq/L BUN 4 L (5-24) mg/dL Creatinine 0.7 (0.5-1.5) mg/dL Estimated Creat Clear 98.71 Estimated GFR 117 ml/min Glucose 127 H (60-115) mg/dL Calcium 8.9 (8.4-10.6) mg/dL Total Bilirubin 0.9 (0.1-1.5) mg/dL AST 101 H (12-35) U/L ALT 128 H (4-35) U/L Alkaline Phosphatase 150 (40-150) U/L Total Protein 7.3 (6.0-8.3) g/dL Albumin 4.0 (3.3-5.0) g/dL Lipase 31 (23-300) U/L Urine Color Yellow (Yellow) Urine Appearance Clear (Clear) Urine pH 7.0 (5.0-8.5) Ur Specific [place] 1.010 (1.000-1.030) Urine Protein 1+ A (Negative) Urine Glucose (UA) Negative (Negative) Urine Ketones Negative (Negative) Urine Blood 1+ A (Negative) Urine Nitrite Negative (Negative) Urine Bilirubin Negative (Negative) Urine Urobilinogen 1.0 (0.2-1.0) Ur Leukocyte Esterase 1+ A (Negative) Urine RBC 2-5 A (0-2) Urine WBC 2-5 (0-5) Ur Squamous Epith Cells None (None-Few) Urine Bacteria Few A (None) Urine HCG, Qual Negative (Negative) Vaginal Bacterial Vaginosis Cancelled Vaginal Carley species Cancelled Vag C. glabrata/krusei Cancelled Vag T. vaginalis Cancelled C.trachomatis Ampl DNA (No Detected) SARS-CoV-2 (PCR) Negative SARS-CoV-2 (Negative) Influenza Type A (PCR) Negative PCR FLU A (Negative) Influenza Type B (PCR) Negative PCR FLU B (Negative) N.gonorrhoeae Ampl DNA (No Detected) Group A Strep DNA NOT DETECTED (Not Detectd) 02/04/25 Range/Units Unknown WBC (4.50-11.00) K/uL RBC (4.00-5.20) m/uL Hgb (12.0-16.0) gm/dL Hct (33.0-51.0) % MCV (80-100) fL MCH (26-34) pg MCHC (32-36) gm/dL RDW Coeff of Vern (11.5-15.5) % Plt Count (140-440) K/uL Neut % (Auto) (42.0-72.0) % Lymph % (Auto) (20-44) % [place] % (Auto) (0.0-11.0) % Eos % (Auto) (0.0-7.0) % Baso % (Auto) (0.0-3.0) % Neut # (Auto) (1.7-7.0) K/uL Lymph # (Auto) (0.90-2.90) K/uL [place] # (Auto) (0.00-0.90) K/UL Eos # (Auto) (0.00-0.50) K/uL Baso # (Auto) (0.00-0.30) K/uL Abs Immat Gran (auto) (0.00-0.30) K/uL Imm/Tot Granulo (auto) % Sodium (135-149) mmol/L Potassium (3.6-5.1) mmol/L Chloride (96-114) mmol/L Carbon Dioxide (20-32) mmol/L Anion Gap (7-15) mEq/L BUN (5-24) mg/dL Creatinine (0.5-1.5) mg/dL Estimated Creat Clear Estimated GFR ml/min Glucose (60-115) mg/dL Calcium (8.4-10.6) mg/dL Total Bilirubin (0.1-1.5) mg/dL AST (12-35) U/L ALT (4-35) U/L Alkaline Phosphatase (40-150) U/L Total Protein (6.0-8.3) g/dL Albumin (3.3-5.0) g/dL Lipase (23-300) U/L Urine Color (Yellow) Urine Appearance (Clear) Urine pH (5.0-8.5) Ur Specific [place] (1.000-1.030) Urine Protein (Negative) Urine Glucose (UA) (Negative) Urine Ketones (Negative) Urine Blood (Negative) Urine Nitrite (Negative) Urine Bilirubin (Negative) Urine Urobilinogen (0.2-1.0) Ur Leukocyte Esterase (Negative) Urine RBC (0-2) Urine WBC (0-5) Ur Squamous Epith Cells (None-Few) Urine Bacteria (None) Urine HCG, Qual (Negative) Vaginal Bacterial Vaginosis Negative Vaginal [place]ley species DETECTED A Vag C. glabrata/krusei NOT DETECTED Vag T. vaginalis NOT DETECTED C.trachomatis Ampl DNA NOT DETECTED (No Detected) SARS-CoV-2 (PCR) (Negative) Influenza Type A (PCR) (Negative) Influenza Type B (PCR) (Negative) N.gonorrhoeae Ampl DNA NOT DETECTED (No Detected) Group A Strep DNA (Not Detectd) Imaging Data CT scan - abdomen: Attestation: I have reviewed the pertinent imaging results. Radiologist's impression: Impression: 1. Mild right hydroureteronephrosis down to the level of the pelvic brim. No obstructing lesion demonstrated. This may be due to a nonobstructing stone or infection/inflammation. Mild right perinephric stranding and cortical thickening suggest pyelonephritis which may result in ureterectasis. 2. Bilateral 2 millimeter nonobstructing renal calculi. Discharge Plan Discharge Clinical Impression: Pyelonephritis, Vaginal yeast infection Patient Disposition: Home, Self-Care Condition: Stable Instructions: Kidney Infection (ED), Yeast Infection (ED) Additional Instructions: As we discussed, at right now we suspect you have a kidney infection causing her fever, headache, and urinary symptoms. Please continue on antibiotics starting tomorrow morning. Take them for 10 total days. The [facility] ER will call you in 1-2 days if your urine culture shows an unusual bacteria causing her infection or if we need to change antibiotics. Your vaginal swab does show signs of a yeast infection. Please take the single dose of fluconazole to treat this. Most importantly, monitor symptoms carefully. If you have worsening pain, high fever, confusion, worsening headache or neck stiffness, vomiting or dehydration, weakness, or any problems, return to the ER right away to be rechecked. Prescriptions: New cefpodoxime 200 mg tablet 200 mg PO BID Qty: 20 0RF Rx Instructions: must administer with a meal/food fluconazole 150 mg tablet 150 mg PO DAILY Qty: 1 0RF hydrocodone-acetaminophen 5-325 mg tablet 1 tab PO Q6H PRN (Reason: pain) Qty: 7 0RF ondansetron 4 mg tablet,disintegrating 4 mg PO Q8H PRN (Reason: nausea and vomiting) Qty: 7 0RF No Action albuterol sulfate [ProAir HFA] 90 mcg/actuation HFA aerosol inhaler 1 inh inhalation Q4-6H PRN clonazepam 0.5 mg tablet 0.25 - 0.5 mg PO QPM clonidine HCl 0.2 mg tablet 0.2 mg PO QPM losartan 25 mg tablet 25 mg PO DAILY sertraline 25 mg tablet 25 mg PO QAM dextroamphetamine-amphetamine 10 mg capsule,extended release 24hr 1 cap PO QAM propranolol 20 mg tablet 20 mg PO BID PRN dextroamphetamine-amphetamine 5 mg tablet 1 tab PO DAILY escitalopram oxalate 10 mg tablet 10 mg PO DAILY Follow Up/Referrals: Provider,Not a Local [Primary Care Provider, Family Practice] Stand Alone Forms: [place] Info Instructions
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
[2025-02-04 15:25] VITALS: BP 134/76; PULSE 122; RESP 20; TEMP 38.8; O2SAT 99
[2025-02-04 15:34] LABS: Appearance Urine Clear (Clear); Bilirubin Urine Negative (Negative); Blood Urine 1+ (Negative); Color Urine Yellow (Yellow); Glucose Urine Negative (Negative); Ketones Urine Negative (Negative); Leukocyte Esterase Urine 1+ (Negative); Nitrite Urine Negative (Negative); Protein Urine 1+ (Negative)
[2025-02-04 15:35] LABS: Ur HCG Qualitative* Negative (Negative)
[2025-02-04 15:41] LABS: Bacteria Urine Few
--- NOTE | 2025-02-04 15:50 | CRLHL7_ITS ---
For Patients: As a result of the Century Cures Act, medical imaging exams and procedure reports are released immediately into your electronic medical record. You may view this report before your referring provider. If you have questions, please contact your health care provider. INDICATION: Right flank pain. UTI symptoms. No BM. Technique: CT abdomen and pelvis without contrast Comparison: None Findings: Liver: Normal in caliber and attenuation. No masses. Gallbladder and bile ducts: Unremarkable. No dilation. Pancreas: Unremarkable. Spleen: Normal in caliber. No masses. Adrenal glands: Unremarkable. No masses. Kidneys: Mild right hydroureteronephrosis down to the level of the pelvic brim. 2 millimeter nonobstructing calculus lower pole right kidney along with 2 millimeter nonobstructing calculus upper pole left kidney no other renal calcifications. Mild perinephric stranding. Suspect mild edematous changes right kidney. GI tract: Normal in caliber and appearance. No sign of mass or inflammation. Appendix: No acute appendicitis. Lymph nodes: No lymphadenopathy. Aorta and vessels: No aneurysm or severe stenosis. Omentum/peritoneum/retroperitoneum: No masses or infiltration. No free air or significant free fluid. Pelvic organs: Unremarkable. Bladder: No calculi or focal wall thickening. Bones: No fractures or suspicious bone lesions. Soft Tissues: No mass lesions or significant hernias. Impression: 1. Mild right hydroureteronephrosis down to the level of the pelvic brim. No obstructing lesion demonstrated. This may be due to a nonobstructing stone or infection/inflammation. Mild right perinephric stranding and cortical thickening suggest pyelonephritis which may result in ureterectasis. 2. Bilateral 2 millimeter nonobstructing renal calculi. Please note that all CT scans at this facility use dose modulation, iterative reconstruction, and/or weight-based dosing when appropriate to reduce radiation dose to as low as reasonably achievable. Dictated by Altaf Torres MD @ 02/04/2025 5:32:49 PM (Electronically Signed)
[2025-02-04] MEDS: ONDANSETRON 2 MG/ML inj 4 MG IVP (16:14)
[2025-02-04] MEDS: 0.9 % SODIUM CHLORIDE 1000 ml 1,000 ML IV ×2 (16:14→18:10)
[2025-02-04] MEDS: KETOROLAC 15 MG/ML inj IVP (16:14)
[2025-02-04 16:24] LABS: Basophils Absolute Auto 0.01 K/uL (0.00-0.30); Basophils Percent Auto 0.1 % (0.0-3.0); Eosinophils Absolute Auto 0.01 K/uL (0.00-0.50); Eosinophils Percent Auto 0.1 % (0.0-7.0); Hemoglobin* 12.1 gm/dL (12.0-16.0); Immature Granulocytes Abs Auto 0.05 K/uL (0.00-0.30); Immature Granulocytes Pct Auto 0.5 %; Lymphocytes Percent Auto 7.1 % (20-44); Mean Corpuscular HGB Conc 34 gm/dL (32-36); Mean Corpuscular Hemoglobin 31 pg (26-34); Mean Corpuscular Volume 91 fL (80-100); Monocytes Percent Auto 9.9 % (0.0-11.0); Neutrophils Percent Auto 82.3 % (42.0-72.0); Platelet Count* 176 K/uL (140-440); RDW Coefficient of Variation % 12.8 % (11.5-15.5); Red Blood Count 3.94 m/uL (4.00-5.20); White Blood Count* 10.96 K/uL (4.50-11.00)
[2025-02-04 16:28] LABS: Slide Review Reflex No
[2025-02-04 16:36] LABS: Chloride* 99 mmol/L (96-114); Potassium* 3.8 mmol/L (3.6-5.1); Sodium* 134 mmol/L (135-149)
[2025-02-04 16:39] LABS: Alanine Aminotransferase* 128 U/L (4-35); Alkaline Phosphatase* 150 U/L (40-150); Anion Gap 8 mEq/L (7-15); Aspartate Amino Transferase* 101 U/L (12-35); Bilirubin Total* 0.9 mg/dL (0.1-1.5); Blood Urea Nitrogen* 4 mg/dL (5-24); Carbon Dioxide* 27 mmol/L (20-32); Creatinine* 0.7 mg/dL (0.5-1.5); Est. Creatinine Clearance* 98.71; Estimated Glomerular Filt Rate 117 ml/min; Lipase* 31 U/L (23-300); Total Protein* 7.3 g/dL (6.0-8.3)
[2025-02-04 16:40] LABS: Calcium* 8.9 mg/dL (8.4-10.6); Glucose* 127 mg/dL (60-115)
[2025-02-04 16:49] LABS: Strep A DNA Probe* NOT DETECTED (Not Detectd)
[2025-02-04 17:03] LABS: PCR FLU A Negative PCR FLU A (Negative); PCR FLU B Negative PCR FLU B (Negative); SARS PCR* Negative SARS-CoV-2 (Negative)
[2025-02-04] MEDS: cefTRIAXone 1 GM in 0.9 % SODIUM CHLORIDE Mini-bag 100 ML IVPB (17:57)
[2025-02-04 18:00] VITALS: BP 134/74; PULSE 74; RESP 16; O2SAT 99
[2025-02-04 18:02] LABS: Chlamydia DNA Amplified* NOT DETECTED (No Detected); GC DNA Amplified* NOT DETECTED (No Detected)
[2025-02-04] MEDS: ACETAMINOPHEN 500 MG TABLET 1000 MG PO (18:10)
[2025-02-04] MEDS: HYDROmorphone 0.5 mg/0.5 ml inj IVP (18:11)
[2025-02-04 18:19] LABS: Bacterial Vaginosis* Negative (Negative); Candida glab/krus NOT DETECTED (No Detected); Candida species DETECTED (No Detected); Trichomonas vaginalis NOT DETECTED (No Detected)
[2025-02-04 19:00] VITALS: TEMP 37.6
--- NOTE | 2025-02-06 09:06 | ED.GENADULT ---
HPI - General Adult General Date Seen: 02/04/25 Chief complaint: Fever Stated complaint: Fever for past 5 days Time Seen by Provider: 02/04/25 15:17 History of Present Illness HPI narrative: addendum to visit for 02/04. Urine culture grew E coli. is R to first gen cephalosproin. will change to cipro 500mg PO bid x 10 days. called pt. 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 Related Data Home Medications ?Medication ?Instructions ?Recorded ?Confirmed albuterol sulfate 90 mcg/actuation 1 inh inhalation Q4-6H PRN 10/25/22 02/04/25 aerosol inhaler (ProAir HFA) clonazepam 0.5 mg tablet 0.25 - 0.5 mg PO QPM 02/04/25 02/04/25 clonidine HCl 0.2 mg tablet 0.2 mg PO QPM 02/04/25 02/04/25 dextroamphetamine-amphetamine 5 mg 1 tab PO DAILY 02/04/25 02/04/25 tablet dextroamphetamine-amphetamine ER 1 cap PO QAM 02/04/25 02/04/25 10 mg 24hr capsule,extend release escitalopram oxalate 10 mg tablet 10 mg PO DAILY 02/04/25 02/04/25 losartan 25 mg tablet 25 mg PO DAILY 02/04/25 02/04/25 propranolol 20 mg tablet 20 mg PO BID PRN 02/04/25 02/04/25 sertraline 25 mg tablet 25 mg PO QAM 02/04/25 02/04/25 Previous Rx's ?Medication ?Instructions ?Recorded cefpodoxime 200 mg tablet 200 mg PO BID #20 tabs 02/04/25 fluconazole 150 mg tablet 150 mg PO DAILY #1 tab 02/04/25 hydrocodone 5 mg-acetaminophen 325 1 tab PO Q6H PRN pain #7 tabs 02/04/25 mg tablet ondansetron 4 mg disintegrating 4 mg PO Q8H PRN nausea and 02/04/25 tablet vomiting #7 tabs ciprofloxacin HCl 500 mg tablet 500 mg PO BID #20 tabs 02/06/25 (Cipro) Allergies Allergy/AdvReac Type Severity Reaction Status Date / Time azithromycin (From Zithromax) Allergy Mild Rash Verified 02/04/25 15:23 sertraline Allergy Mild gi upset Verified 10/25/22 20:23 buspirone (From BuSpar) Allergy Unknown Verified 10/25/22 20:23 [facility] Medical History Hypertension ?I10 - Essential (primary) hypertension (ICD-10) 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 - Papillomavirus as the cause of diseases classified elsewhere (ICD-10) Depression ?F32.A - Depression, unspecified (ICD-10) ASCUS with positive high risk HPV cervical ?R87.610 - Atypical squamous cells of undetermined significance on cytologic smear of cervix (ASC-US) (ICD-10) ?R87.810 - Cervical high risk human papillomavirus (HPV) DNA test positive (ICD-10) Anxiety ?F41.9 - Anxiety disorder, unspecified (ICD-10) Surgical History S/P laparoscopy ?Z98.890 - Other specified postprocedural states (ICD-10) History of 2 sections ?Z98.891 - History of uterine scar from previous surgery (ICD-10) Family History Other High blood pressure Social History Narrative: She lives in [place]. 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 She doesn't drink alcohol or use recreational drugs during . Smoking Status: Former smoker Do you use any of these nicotine containing products: None Second hand tobacco smoke exposure: No How often do you have a drink containing alcohol: never How often do you have six or more drinks on one occasion: Never AUDIT-C Alcohol total score: 0 Non-prescribed substance use: denies use service: No Course Vital Signs Vital signs: Initial Vital Signs Temperature 101.8 F H 02/04/25 15:25 Temperature Source Oral 02/04/25 15:25 Pulse Rate 122 H 02/04/25 15:25 Respiratory Rate 20 02/04/25 15:25 Blood Pressure 134/76 02/04/25 15:25 Blood Pressure Mean 95 02/04/25 15:25 Pulse Oximetry 99 02/04/25 15:25 Oxygen Delivery Method Room Air 02/04/25 15:25 Vital Signs Temperature 101.8 F H 02/04/25 15:25 Pulse Rate 122 H 02/04/25 15:25 Respiratory Rate 20 02/04/25 15:25 Blood Pressure 134/76 02/04/25 15:25 Pulse Oximetry 99 02/04/25 15:25 Oxygen Delivery Method Room Air 02/04/25 15:25 Temperature 99.7 F H 02/04/25 19:00 Pulse Rate 74 02/04/25 18:00 Respiratory Rate 16 02/04/25 18:00 Blood Pressure 134/74 02/04/25 18:00 Pulse Oximetry 99 02/04/25 18:00 Oxygen Delivery Method Room Air 02/04/25 15:25 Medications Administered Medications: Discontinued Medications Generic Name Dose Route Start Last Admin Trade Name Freq PRN Reason Stop Dose Admin Acetaminophen 1,000 mg 02/04/25 18:01 02/04/25 18:10 Acetaminophen 500 Mg Tablet PO 02/04/25 18:02 1,000 mg ONCE ONE Administration Hydromorphone HCl 0.5 mg 02/04/25 18:01 02/04/25 18:11 Hydromorphone 0.5 Mg/0.5 Ml Inj IVP 0.5 mg Q1H PRN Administration Pain Sodium Chloride 1,000 mls @ 1,000 mls/hr 02/04/25 16:00 02/04/25 17:09 0.9 % Sodium Chloride 1000 Ml IV 02/04/25 16:59 Infused .Q1H MILE Infusion Ceftriaxone Sodium 1 gm/ 100 mls @ 200 mls/hr 02/04/25 17:49 02/04/25 18:25 Sodium Chloride IVPB 02/04/25 17:50 Infused ONCE ONE Infusion Sodium Chloride 1,000 mls @ 1,000 mls/hr 02/04/25 18:15 02/04/25 19:11 0.9 % Sodium Chloride 1000 Ml IV 02/04/25 19:14 Infused .Q1H MILE Infusion Ketorolac Tromethamine 15 mg 02/04/25 15:49 02/04/25 16:14 Ketorolac 15 Mg/Ml Inj IVP 02/04/25 15:50 15 mg ONCE ONE Administration Ondansetron HCl 4 mg 02/04/25 15:49 02/04/25 16:14 Ondansetron 2 Mg/Ml Inj IVP 02/04/25 15:50 4 mg ONCE ONE Administration Medical Decision Making Lab Data Labs: Lab Results 02/04/25 02/04/25 02/04/25 Range/Units 15:26 16:09 16:15 WBC 10.96 (4.50-11.00) K/uL RBC 3.94 L (4.00-5.20) m/uL Hgb 12.1 (12.0-16.0) gm/dL Hct 36.0 (33.0-51.0) % MCV 91 (80-100) fL MCH 31 (26-34) pg MCHC 34 (32-36) gm/dL RDW Coeff of Vern 12.8 (11.5-15.5) % Plt Count 176 (140-440) K/uL Neut % (Auto) 82.3 H (42.0-72.0) % Lymph % (Auto) 7.1 L (20-44) % [place] % (Auto) 9.9 (0.0-11.0) % Eos % (Auto) 0.1 (0.0-7.0) % Baso % (Auto) 0.1 (0.0-3.0) % Neut # (Auto) 9.00 H (1.7-7.0) K/uL Lymph # (Auto) 0.80 L (0.90-2.90) K/uL [place] # (Auto) 1.10 H (0.00-0.90) K/UL Eos # (Auto) 0.01 (0.00-0.50) K/uL Baso # (Auto) 0.01 (0.00-0.30) K/uL Abs Immat Gran (auto) 0.05 (0.00-0.30) K/uL Imm/Tot Granulo (auto) 0.5 % Sodium 134 L (135-149) mmol/L Potassium 3.8 (3.6-5.1) mmol/L Chloride 99 (96-114) mmol/L Carbon Dioxide 27 (20-32) mmol/L Anion Gap 8 (7-15) mEq/L BUN 4 L (5-24) mg/dL Creatinine 0.7 (0.5-1.5) mg/dL Estimated Creat Clear 98.71 Estimated GFR 117 ml/min Glucose 127 H (60-115) mg/dL Calcium 8.9 (8.4-10.6) mg/dL Total Bilirubin 0.9 (0.1-1.5) mg/dL AST 101 H (12-35) U/L ALT 128 H (4-35) U/L Alkaline Phosphatase 150 (40-150) U/L Total Protein 7.3 (6.0-8.3) g/dL Albumin 4.0 (3.3-5.0) g/dL Lipase 31 (23-300) U/L Urine Color Yellow (Yellow) Urine Appearance Clear (Clear) Urine pH 7.0 (5.0-8.5) Ur Specific [place] 1.010 (1.000-1.030) Urine Protein 1+ A (Negative) Urine Glucose (UA) Negative (Negative) Urine Ketones Negative (Negative) Urine Blood 1+ A (Negative) Urine Nitrite Negative (Negative) Urine Bilirubin Negative (Negative) Urine Urobilinogen 1.0 (0.2-1.0) Ur Leukocyte Esterase 1+ A (Negative) Urine RBC 2-5 A (0-2) Urine WBC 2-5 (0-5) Ur Squamous Epith Cells None (None-Few) Urine Bacteria Few A (None) Urine HCG, Qual Negative (Negative) Vaginal Bacterial Vaginosis Cancelled Vaginal Carley species Cancelled Vag C. glabrata/krusei Cancelled Vag T. vaginalis Cancelled C.trachomatis Ampl DNA (No Detected) SARS-CoV-2 (PCR) Negative SARS-CoV-2 (Negative) Influenza Type A (PCR) Negative PCR FLU A (Negative) Influenza Type B (PCR) Negative PCR FLU B (Negative) N.gonorrhoeae Ampl DNA (No Detected) Group A Strep DNA NOT DETECTED (Not Detectd) 02/04/25 Range/Units Unknown WBC (4.50-11.00) K/uL RBC (4.00-5.20) m/uL Hgb (12.0-16.0) gm/dL Hct (33.0-51.0) % MCV (80-100) fL MCH (26-34) pg MCHC (32-36) gm/dL RDW Coeff of Vern (11.5-15.5) % Plt Count (140-440) K/uL Neut % (Auto) (42.0-72.0) % Lymph % (Auto) (20-44) % [place] % (Auto) (0.0-11.0) % Eos % (Auto) (0.0-7.0) % Baso % (Auto) (0.0-3.0) % Neut # (Auto) (1.7-7.0) K/uL Lymph # (Auto) (0.90-2.90) K/uL [place] # (Auto) (0.00-0.90) K/UL Eos # (Auto) (0.00-0.50) K/uL Baso # (Auto) (0.00-0.30) K/uL Abs Immat Gran (auto) (0.00-0.30) K/uL Imm/Tot Granulo (auto) % Sodium (135-149) mmol/L Potassium (3.6-5.1) mmol/L Chloride (96-114) mmol/L Carbon Dioxide (20-32) mmol/L Anion Gap (7-15) mEq/L BUN (5-24) mg/dL Creatinine (0.5-1.5) mg/dL Estimated Creat Clear Estimated GFR ml/min Glucose (60-115) mg/dL Calcium (8.4-10.6) mg/dL Total Bilirubin (0.1-1.5) mg/dL AST (12-35) U/L ALT (4-35) U/L Alkaline Phosphatase (40-150) U/L Total Protein (6.0-8.3) g/dL Albumin (3.3-5.0) g/dL Lipase (23-300) U/L Urine Color (Yellow) Urine Appearance (Clear) Urine pH (5.0-8.5) Ur Specific [place] (1.000-1.030) Urine Protein (Negative) Urine Glucose (UA) (Negative) Urine Ketones (Negative) Urine Blood (Negative) Urine Nitrite (Negative) Urine Bilirubin (Negative) Urine Urobilinogen (0.2-1.0) Ur Leukocyte Esterase (Negative) Urine RBC (0-2) Urine WBC (0-5) Ur Squamous Epith Cells (None-Few) Urine Bacteria (None) Urine HCG, Qual (Negative) Vaginal Bacterial Vaginosis Negative Vaginal [place] species DETECTED A Vag C. glabrata/krusei NOT DETECTED Vag T. vaginalis NOT DETECTED C.trachomatis Ampl DNA NOT DETECTED (No Detected) SARS-CoV-2 (PCR) (Negative) Influenza Type A (PCR) (Negative) Influenza Type B (PCR) (Negative) N.gonorrhoeae Ampl DNA NOT DETECTED (No Detected) Group A Strep DNA (Not Detectd) Discharge Plan Discharge Clinical Impression: Pyelonephritis, Vaginal yeast infection Patient Disposition: Home, Self-Care Condition: Stable Instructions: Kidney Infection (ED), Yeast Infection (ED) Additional Instructions: As we discussed, at right now we suspect you have a kidney infection causing her fever, headache, and urinary symptoms. Please continue on antibiotics starting tomorrow morning. Take them for 10 total days. The [facility] ER will call you in 1-2 days if your urine culture shows an unusual bacteria causing her infection or if we need to change antibiotics. Your vaginal swab does show signs of a yeast infection. Please take the single dose of fluconazole to treat this. Most importantly, monitor symptoms carefully. If you have worsening pain, high fever, confusion, worsening headache or neck stiffness, vomiting or dehydration, weakness, or any problems, return to the ER right away to be rechecked. Prescriptions: New cefpodoxime 200 mg tablet 200 mg PO BID Qty: 20 0RF Rx Instructions: must administer with a meal/food fluconazole 150 mg tablet 150 mg PO DAILY Qty: 1 0RF hydrocodone-acetaminophen 5-325 mg tablet 1 tab PO Q6H PRN (Reason: pain) Qty: 7 0RF ondansetron 4 mg tablet,disintegrating 4 mg PO Q8H PRN (Reason: nausea and vomiting) Qty: 7 0RF ciprofloxacin HCl [Cipro] 500 mg tablet 500 mg PO BID Qty: 20 0RF No Action albuterol sulfate [ProAir HFA] 90 mcg/actuation HFA aerosol inhaler 1 inh inhalation Q4-6H PRN clonazepam 0.5 mg tablet 0.25 - 0.5 mg PO QPM clonidine HCl 0.2 mg tablet 0.2 mg PO QPM losartan 25 mg tablet 25 mg PO DAILY sertraline 25 mg tablet 25 mg PO QAM dextroamphetamine-amphetamine 10 mg capsule,extended release 24hr 1 cap PO QAM propranolol 20 mg tablet 20 mg PO BID PRN dextroamphetamine-amphetamine 5 mg tablet 1 tab PO DAILY escitalopram oxalate 10 mg tablet 10 mg PO DAILY Follow Up/Referrals: Provider,Not a Local [Primary Care Provider, Family Practice] Stand Alone Forms: [employer] Info Instructions
== END 2025-02-04 19:13 | disposition home or self-care (01) ==
PROVIDERS: Emergency Provider Emergency Medicine
DX: N10 Acute pyelonephritis (principal); B37.31 Acute candidiasis of vulva and vagina
CPT/HCPCS: 36415; 74176; 80053; 81001; 81025; 81513; 83690; 85025; 87086; 87481; 87491; 87591; 87631; 87651; 87661; 96365; 96375; 99281; 99283; 99284; A9270; J0696; J1171; J1885; J2405; J7030